=== PATIENT | female | born 1930 | race Caucasian/White ===

== ENCOUNTER 2019-05-07 11:36 | Observation (INO) ==
--- NOTE | 2019-05-07 11:43 | Emergency Department Note ---
ED Disposition Clinical Impression: Weakness Urinary tract infection Qualifiers: Urinary tract infection type: site unspecified Hematuria presence: with hematuria Qualified Code(s): N39.0 - Urinary tract infection, site not specified; R31.9 - Hematuria, unspecified Disposition: Admitted as Observation Condition on Discharge: Good Referrals: Jett Ochoa MD [Primary Care Provider] - - Critical Care Critical Care Time: No Attestation: On , the high probability of a clinically significant, sudden or life threatening deterioration of the following system(s) required my full and direct attention, intervention and personal management. The time I documented below is in addition to time spent performing reported procedures but includes the following listed in this critical care notation. Medical Decision Making - [place] Inquiry Pt receiving controlled substance: No Vital Signs: 05/07/19 11:36 05/07/19 11:57 05/07/19 12:53 Pulse Rate [Left Radial] 74 71 74 Respiratory Rate 18 Blood Pressure [Right Arm] 128/68 120/86 161/86 H Blood Pressure Mean [Right Arm] 88 97 111 Blood Pressure Source [Right Arm] Automatic Cuff Blood Pressure Position [Right Arm] Sitting 02 Sat by Pulse Oximetry 98 97 Oxygen Delivery Method Room Air - Lab Data Lab Results 05/07/19 12:10: WBC 5.6, RBC 4.57, Hgb 14.7, Hct 43.1, MCV 94.3, MCH 32.1 H, MCHC 34.1, RDW 12.6, Plt Count 134 L, MPV 9.0, Neut % (Auto) 73.3, Lymph % (Auto) 18.3, [place] % (Auto) 6.3, Eos % (Auto) 1.5, Baso % (Auto) 0.7, Neut # (Auto) 4.1, Lymph # (Auto) 1.0, [place] # (Auto) 0.4, Eos # (Auto) 0.1, Baso # (Auto) 0.0 05/07/19 12:10: Troponin I < 0.02 05/07/19 12:10: Sodium 141, Potassium 4.6, Chloride 104, Carbon Dioxide 28, Anion Gap 13.6, BUN 23 H, Creatinine 1.06 H, Estimated Creat Clear 39, Estimated GFR 49 L, Est GFR ( Amer) 59, Glucose 133 H, Calcium 9.0 05/07/19 12:11: Total Bilirubin 0.3, Direct Bilirubin 0.1, Indirect Bilirubin 0. 2, AST 26, ALT 23, Alkaline Phosphatase 49, Total Protein 7.4, Albumin 3.8 05/07/19 12:40: Urine Color Yellow, Urine Appearance Clear, Urine pH 5.5, Ur Specific [place] 1.025, Urine Protein Negative, Urine Glucose (UA) Negative, Urine Ketones Trace, Urine Blood Negative, Urine Nitrate Positive, Urine Bilirubin Negative, Urine Urobilinogen 0.2, Ur Leukocyte Esterase 2+ A, Urine WBC 10-20, Urine Bacteria 2+ Result diagrams: 05/07/19 12:10 05/07/19 12:10 Orders (Tests/Meds): ED MEDICATIONS Generic Name Dose Route Start Last Admin Trade Name Freq PRN Reason Stop Dose Admin Ceftriaxone Sodium 1 gm/ 50 mls @ 100 mls/hr 05/07/19 14:15 05/07/19 14:14 Sodium Chloride IV 05/21/19 14:14 100 mls/hr Q24H SALLY Administration Protocol ORDERS Category Date Time Status Lactic Acid Stat Lab 05/07/19 14:09 Received Blood Culture Stat Micro 05/07/19 14:09 Received Urine Culture Stat Micro 05/07/19 12:40 Received - Radiology Data #1 Image(s): Chest Image Reviewed: Yes I reviewed the patient's radiology image, Yes I have reviewed radiologist's interpretation Preliminary Findings: Normal/NAD - ECG Data Tracing #1 EKG interpreted by Toan Ken MD: Rhythm: Wide-complex, regular rhythm. Possible electronic ventricular pacemaker spikes seen in lead I and aVL. Likely electronic ventricular paced rhythm. Rate: 77 - Physician Consults Physician Consulted: Reed Ochoa Time: 14:25 Reason -: Admission Comment/Response: Agrees to admit the patient to the hospital. We discussed the patient's clinical information, including history, exam, laboratory and radiolo gy results and ED course. Per hospital procedure, I will write temporary bridge inpatient orders on the patient. Specific orders requested by the admitting physician: Continue antibiotics and IV fluids General Adult HPI - General Stated complaint: weakness Time Seen by Provider: 05/07/19 11:45 - History of Present Illness HPI narrative: Brought in by ambulance. Reportedly was on the toilet and became very weak and could not get up. Family reported to EMS that she has been weak for the past couple of days. At the time of my evaluation, family is not present. The patient is a historian of questionable reliability. Appears to have some mild confusion. She is oriented to person and place, does not know the year, she does note that the month is May. She has a hard time telling me why she is here. She does know that she went to the bathroom and does not really know how to describe how she felt, but states "everything went". Currently says she has no pain, no difficulty breathing. Denies feeling weak or dizzy. Says she has not recently been ill. Denies vomiting, diarrhea, fever, cough or URI symptoms. Denies difficulty urinating. - Related Data Home Medications Medication Instructions Recorded Confirmed atenolol 25 mg tablet 25 mg PO ONCE 09/24/17 05/07/19 levothyroxine 125 mcg tablet 150 mcg PO DAILY 09/24/17 05/07/19 rivaroxaban 15 mg tablet 15 mg PO BID 09/24/17 05/07/19 sertraline 100 mg tablet 100 mg PO QDAY 09/24/17 05/07/19 simvastatin 20 mg tablet 20 mg PO QAM 09/24/17 05/07/19 Allergies Allergy/AdvReac Type Severity Reaction Status Date / Time No Known Allergies Allergy Verified 04/07/19 13:05 [facility] History - Hepatitis A Screen Attestation statement:: This patient has been screened for Hepatitis A risk factors. I have reviewed the patient's past medical history: Yes Medical History: Reports:: Depression, Hypertension, Internal Pacemaker Other Medical History: Reports: Arthritis Other Surgeries: Yes: Hysterectomy-Total, Pacemaker, Thyroidectomy - Social History Smoking Status: Never smoker Alcohol Intake: never Alcohol Intake Frequency:: other Occupational Status: retired - Psychiatric History Pschychiatric History:: Reports:: Depression Family Hx:: Cancer, Diabetes ROS Obtained: Yes All systems reviewed & no additional complaints - Constitutional Constitutional: Denies fever(s), Reports weakness - ENT Ears, Nose, Mouth, and Throat: Denies nasal discharge, Denies sore throat - Cardiovascular Cardiovascular: Denies chest pain - Respiratory Respiratory: No cough, No dyspnea - Gastrointestinal Gastrointestingal: Denies: abdominal pain, diarrhea, nausea, vomiting - Genitourinary Female Genitourinary: Denies difficulty voiding - Neurologic Neurologic: Denies headache(s) Physical Exam - General General appearance: alert, in no apparent distress - Head Head exam: atraumatic, normocephalic - Eye Eye exam: Present: normal appearance, EOMI - ENT ENT exam: Present: mucous membranes moist - Neck Neck exam: Present: normal inspection, trachea midline - Chest Chest inspection: Present: normal inspection, symmetric chest wall rise, other (pacemaker L chest) - Respiratory Respiratory exam: Present: normal lung sounds bilaterally. Absent: respiratory distress - Cardiovascular Cardiovascular exam: Present: regular rate, normal rhythm, normal heart sounds - Abdominal Exam Abdominal exam: Present: soft, normal bowel sounds. Absent: distention, tenderness, guarding, rebound, rigidity - Extremities Exam Extremities exam: Present: normal inspection. Absent: tenderness - Neurological Exam Neurological exam: Present: alert, CN II-XII intact. Absent: oriented X3 (oriented to person, place, month, but not year), motor sensory deficit - Psychiatric Psychiatric exam: Present: normal affect, normal mood - Skin Skin exam: Present: warm, dry
[2019-05-07 12:39] LABS: Basophils % 0.7 % (0.1-2.0); Eosinophils # 0.1 K/mm3 (0.0-0.4); Eosinophils % 1.5 % (0.1-12.0); Hematocrit 43.1 % (37.0-47.0); Hemoglobin 14.7 g/dL (12.2-16.2); Lymphocytes % 18.3 % (10-50); Mean Corpuscular HGB Conc 34.1 g/dL (31.8-35.4); Mean Corpuscular Volume 94.3 fl (81-99); Monocytes # 0.4 K/mm3 (0.1-1.0); Monocytes % 6.3 % (1.7-9.3); Neutrophils # 4.1 K/mm3 (1.8-7.8); Neutrophils % 73.3 % (37.0-80.0); Platelet Count 134 K/mm3 (142-424); Red Blood Count 4.57 M/mm3 (4.20-5.40); Red Cell Distribution Width 12.6 % (11.5-17.5); White Blood Count 5.6 K/mm3 (4.8-10.8)
[2019-05-07 12:52] LABS: Microscopic, Urine URINE MICROSCOPIC (MICROSCOPIC)
[2019-05-07 12:55] LABS: Appearance,Urine CLEAR (Clear); Bilirubin,Urine Negative (Negative); Blood, Urine Negative (Negative); Color,Urine YELLOW (Yellow); Glucose,Urine (UA) Negative (Negative); Ketones,Urine TRACE (Negative); Leukocyte Esterase,Urine 2+ (Negative); PH,Urine 5.5 (5.0-8.5); Protein,Urine Negative (Negative); Specific Gravity, Urine 1.025 (1.005-1.030); Urobilinogen,Urine 0.2 EU/dl (0.2)
[2019-05-07 13:05] LABS: Bacteria,Urine 2+ /lpf
[2019-05-07 13:36] LABS: Albumin Level 3.8 gm/dL (3.4-5.0); Bilirubin,Direct 0.1 mg/dL (0.0-0.2); Bilirubin,Indirect 0.2 mg/dL (0.0-0.9); Bilirubin,Total 0.3 mg/dL (0.2-1.0); Total Protein,Serum 7.4 gm/dL (6.4-8.2)
[2019-05-07 13:44] LABS: Anion Gap 13.6 mEq/L (5-15)
--- NOTE | 2019-05-08 07:22 | H&P/Discharge Summary ---
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 Patient seemed weaker than usual. In the emergency department she was found to have a urinary tract infection. Patient was admitted for IV fluids and given intravenous Rocephin. History is somewhat limited as apparently no family was present in the emergency department and patient herself does not have the best memory. She does denies symptoms of urinary tract infection such as dysuria, urinary frequency and urgency. She denies having fevers at home [facility] [place] History I have reviewed the patient's past medical history: Yes Medical History: Reports:: Depression, Hyperlipidemia, Hypertension, Internal Pacemaker Denies:: Cancer, Diabetes Mellitus Type 1, Diabetes Mellitus Type 2, MRSA *Have you ever received a pneumonia vaccine?: No *Have you received a flu vaccine this season?: No Other Medical History: Reports: Arthritis Other Surgeries: Yes: Hysterectomy-Total, Pacemaker, Thyroidectomy Amputation: No Fractures: No - *Social History Educational Level: Completed High School Smoking Status: Never smoker Alcohol Intake: never Alcohol Intake Frequency:: other *Occupational Status:: retired Housing: house Household Members: spouse *Travel in the last 8 weeks: None - Psychiatric History Pschychiatric History:: Reports:: Depression Family Hx:: Cancer, Diabetes Review of Systems - Review of Systems Review of systems:: pertinent systems reviewed and negative unless documented below - Constitutional Denies anorexia, Denies body ache(s), Denies chills, Denies fatigue, Denies fever(s) - ENT Reports abnormal hearing - *Cardiovascular Denies chest pain - *Respiratory Denies change in phlegm color, Denies chest congestion, Denies cough - *Gastrointestinal Denies abdominal pain, Denies belching - *Genitourinary Denies difficulty urinating, Denies painful urination, Denies blood in urine, Denies frequent nighttime urination, Denies dribbling after urination - *Musculoskeletal Reports abnormal walking, Reports joint pain - *Neurologic Reports weakness, Denies headache(s) Exam Vital signs and Labs for Last 24 Hours: Temp Pulse Resp BP Pulse Ox 97.8 F 74 20 149/76 H 95 09/08/19 04:00 05/08/19 04:00 05/08/19 04:00 05/08/19 04:00 05/08/19 04:00 Laboratory Results - last 24 hr 05/07/19 10:25: TSH 6.10 H 05/07/19 12:10: WBC 5.6, RBC 4.57, Hgb 14.7, Hct 43.1, MCV 94.3, MCH 32.1 H, MCHC 34.1, RDW 12.6, Plt Count 134 L, MPV 9.0, Neut % (Auto) 73.3, Lymph % (Auto) 18.3, [place] % (Auto) 6.3, Eos % (Auto) 1.5, Baso % (Auto) 0.7, Neut # (Auto) 4.1, Lymph # (Auto) 1.0, [place] # (Auto) 0.4, Eos # (Auto) 0.1, Baso # (Auto) 0.0 05/07/19 12:10: Troponin I < 0.02 05/07/19 12:10: Sodium 141, Potassium 4.6, Chloride 104, Carbon Dioxide 28, Anion Gap 13.6, BUN 23 H, Creatinine 1.06 H, Estimated Creat Clear 39, Estimated GFR 49 L, Est GFR ( Amer) 59, Glucose 133 H, Calcium 9.0 05/07/19 12:11: Total Bilirubin 0.3, Direct Bilirubin 0.1, Indirect Bilirubin 0.2, AST 26, ALT 23, Alkaline Phosphatase 49, Total Protein 7.4, Albumin 3.8 05/07/19 12:40: Urine Color Yellow, Urine Appearance Clear, Urine pH 5.5, Ur Specific [place] 1.025, Urine Protein Negative, Urine Glucose (UA) Negative, Urine Ketones Trace, Urine Blood Negative, Urine Nitrate Positive, Urine Bilirubin Negative, Urine Urobilinogen 0.2, Ur Leukocyte Esterase 2+ A, Urine WBC 10-20, Urine Bacteria 2+ 05/07/19 14:09: Lactate 0.6 I & O for Last 24 hours: Intake & Output 05/05/19 05/06/19 05/07/19 05/08/19 11:59 11:59 11:59 11:59 Intake Total 925 / 925 Balance 925 / 925 Weight 150 lb 166 lb 1 oz Microbiology Reports for the Last 24 Hours: Microbiology 05/07/19 12:40 Urine,Random Urine Culture - Preliminary Gram Negative Rods Narrative: Patient is awake and alert sitting up in bed this morning. She appears at baseline. Oropharynx is moist. Neck is without lymphadenopathy. Lungs are clear to auscultation. Heart has a regular rate and rhythm. Abdomen is obese and soft and nontender. Patient can move all 4 extremities. She is oriented to person and place. Hospital Course Hospital Course: Patient was started on IV fluids and given IV Rocephin. She was admitted for observation. On May 08 she was at baseline. Patient was given an additional dose of IV Rocephin and then discharged to home. Oral antibiotics will start tomorrow. Results Labs on day of discharge: Labs from last 24 hours 05/07/19 05/07/19 05/07/19 14:09 12:40 12:11 WBC RBC Hgb Hct MCV MCH MCHC RDW Plt Count MPV Neut % (Auto) Lymph % (Auto) [place] % (Auto) Eos % (Auto) Baso % (Auto) Neut # (Auto) Lymph # (Auto) [place] # (Auto) Eos # (Auto) Baso # (Auto) Sodium Potassium Chloride Carbon Dioxide Anion Gap BUN Creatinine Estimated Creat Clear Estimated GFR Est GFR ( Amer) Glucose Lactate 0.6 Calcium Total Bilirubin 0.3 Direct Bilirubin 0.1 Indirect Bilirubin 0.2 AST 26 ALT 23 Alkaline Phosphatase 49 Troponin I Total Protein 7.4 Albumin 3.8 TSH Urine Color Yellow Urine Appearance Clear Urine pH 5.5 Ur Specific [place] 1.025 Urine Protein Negative Urine Glucose (UA) Negative Urine Ketones Trace Urine Blood Negative Urine Nitrate Positive Urine Bilirubin Negative Urine Urobilinogen 0.2 Ur Leukocyte Esterase 2+ A Urine WBC 10-20 Urine Bacteria 2+ 05/07/19 05/07/19 05/07/19 12:10 12:10 12:10 WBC 5.6 RBC 4.57 Hgb 14.7 Hct 43.1 MCV 94.3 MCH 32.1 H MCHC 34.1 RDW 12.6 Plt Count 134 L MPV 9.0 Neut % (Auto) 73.3 Lymph % (Auto) 18.3 [place] % (Auto) 6.3 Eos % (Auto) 1.5 Baso % (Auto) 0.7 Neut # (Auto) 4.1 Lymph # (Auto) 1.0 [place] # (Auto) 0.4 Eos # (Auto) 0.1 Baso # (Auto) 0.0 Sodium 141 Potassium 4.6 Chloride 104 Carbon Dioxide 28 Anion Gap 13.6 BUN 23 H Creatinine 1.06 H Estimated Creat Clear 39 Estimated GFR 49 L Est GFR ( Amer) 59 Glucose 133 H Lactate Calcium 9.0 Total Bilirubin Direct Bilirubin Indirect Bilirubin AST ALT Alkaline Phosphatase Troponin I < 0.02 Total Protein Albumin TSH Urine Color Urine Appearance Urine pH Ur Specific [place] Urine Protein Urine Glucose (UA) Urine Ketones Urine Blood Urine Nitrate Urine Bilirubin Urine Urobilinogen Ur Leukocyte Esterase Urine WBC Urine Bacteria 05/07/19 10:25 WBC RBC Hgb Hct MCV MCH MCHC RDW Plt Count MPV Neut % (Auto) Lymph % (Auto) [place] % (Auto) Eos % (Auto) Baso % (Auto) Neut # (Auto) Lymph # (Auto) [place] # (Auto) Eos # (Auto) Baso # (Auto) Sodium Potassium Chloride Carbon Dioxide Anion Gap BUN Creatinine Estimated Creat Clear Estimated GFR Est GFR ( Amer) Glucose Lactate Calcium Total Bilirubin Direct Bilirubin Indirect Bilirubin AST ALT Alkaline Phosphatase Troponin I Total Protein Albumin TSH 6.10 H Urine Color Urine Appearance Urine pH Ur Specific [place] Urine Protein Urine Glucose (UA) Urine Ketones Urine Blood Urine Nitrate Urine Bilirubin Urine Urobilinogen Ur Leukocyte Esterase Urine WBC Urine Bacteria Preliminary micro results at discharge 05/07/19 12:40 Urine Culture - Preliminary Urine,Random Gram Negative Rods DS: Diagnosis - Discharge Diagnosis (1) Urinary tract infection Status: Acute Discharge Plan - Patient Discharge Instructions ACTIVITY: Continue current activity DIET: continue same diet Patient Instructions: DI for Urinary Tract Infection (UTI) - Follow up Plan Follow up with: Jett Ochoa MD [Primary Care Provider] - 1 week Disposition: Home, Self-Residential Medications: Home Medications Medication Instructions Recorded Confirmed Type atenolol 25 mg tablet 25 mg PO ONCE 09/24/17 05/07/19 History levothyroxine 125 mcg tablet 150 mcg PO DAILY 09/24/17 05/07/19 History rivaroxaban 15 mg tablet 15 mg PO BID 09/24/17 05/07/19 History sertraline 100 mg tablet 100 mg PO QDAY 09/24/17 05/07/19 History simvastatin 20 mg tablet 20 mg PO QAM 09/24/17 05/07/19 History Nitrofurantoin Macrocrystal 50 mg PO QID #30 cap 05/08/19 Rx [Macrodantin] Prescriptions/Medication Reconciliation: New Rivaroxaban [Xarelto 15mg tablet] 15 mg PO DAILY tablet Nitrofurantoin Macrocrystal [Macrodantin] 50 mg PO QID #30 cap Continued atenolol 25 mg tablet 25 mg PO ONCE sertraline 100 mg tablet 100 mg PO QDAY simvastatin 20 mg tablet 20 mg PO QAM levothyroxine 125 mcg tablet 150 mcg PO DAILY Discontinued rivaroxaban 15 mg tablet 15 mg PO BID - Problem Reconciliation Problems Reviewed?: Yes
--- NOTE | 2019-05-08 11:56 | Pharmacy Consult Notes ---
[facility] Pharmacy VTE Monitoring - Patient Demographics Admission date: 05/08/19 Report Date: 05/08/19 Time: 11:55 Allergies/Adverse Reactions: Patient Allergies No Known Allergies Allergy (Verified 04/07/19 13:05) Height: 1.6 m Weight: 75.325 kg Patient Problems: Current Active Problems Urinary tract infection (Acute) Weakness (Acute) - VTE Risk Labs: VTE Related Lab Results Hgb 14.7 g/dL (12.2-16.2) 05/07/19 12:10 Hct 43.1 % (37.0-47.0) 05/07/19 12:10 Plt Count 134 K/mm3 (142-424) L 05/07/19 12:10 BUN 23 mg/dL (7-18) H 05/07/19 12:10 Creatinine 1.06 mg/dL (0.55-1.02) H 05/07/19 12:10 Estimated Creat Clear 39 mL/min (50-200) 05/07/19 12:10 VTE Score: 1 VTE Risk Level: Very Low Risk - Prophylaxis Location of Applied Device: Not Applicable Pharmacologic Type: Other - VTE Diagnosis Confirmed Treatment or plan recommended: Continue Current Treatment (XARELTO ORDERED)
--- NOTE | 2019-05-09 18:03 | Electrocardiograph Report ---
APPROVED REPORT Exam: Resting ECG HR:71 bpm ECG Measurements Heart Rate 71 AXES QRSd 162 QRS -83 QT 468 T95 QTc 508 <Conclusion> LBBB Abnormal ECG Electronically signed by : Jett Dueñas, 05/09/2019 18:03:10
== END 2019-05-08 15:07 | disposition home or self-care (01) ==
LOC: 2ND 11:36 → ER 11:36 → 2ND 15:22
PROVIDERS: ADMIT Internal Medicine Adolescent Medicine; ATTEND Family Medicine
CPT/HCPCS: 70450; 71020; 71046; 80048; 80076; 81001; 83605; 84443; 84484; 85025; 87040; 87086; 87088; 87186; 93005; 96374; 99285; G0378